=== PATIENT | female | born 1970 | race Caucasian/White ===

== ENCOUNTER 2019-07-19 12:53 | Emergency (ER) | payer BC ==
[2019-07-19] MEDS ORDERED: CEFTRIAXONE/SWI 1gm 1 GM/10 ML SYR ONE (14:28)
[2019-07-19] MEDS ORDERED: NA CHLORIDE 0.9% 1,000 ML ONE (14:28)
[2019-07-19] MEDS ORDERED: KETOROLAC 30 MG/ML INJ ONE (14:28)
[2019-07-19 14:46] LABS: Absolute Lymphocytes (CBC) 1.8 K/uL (0.7-4.9); Basophils % 0.6 % (0-1.3); Hematocrit 38.9 % (36.0-45.0); Lymphocytes % 26.8 % (15.3-44.8); MPV 8.4 fL (7.6-11.3); RBC Red Blood Cell Count 4.29 M/uL (3.86-4.86)
--- NOTE | 2019-07-19 15:12 | RAD REPORT ---
EXAM DESCRIPTION: CT - Stone Protocol - 07/19/2019 2:48 pm CLINICAL HISTORY: Flank pain. ABD PAIN COMPARISON: <Comparisons> TECHNIQUE: Axial images were obtained without oral or IV contrast. Lack of contrast limits solid org an and vascular assessment. The [id number] spans the entirety of the system partially obscuring uppermost abdomen and lung bases. Coronal reformatted images were obtained and reviewed. All CT scans are performed using dose optimization technique as appropriate and may include automated exposure control or mA/KV adjustment according to patient size. FINDINGS: The lower lung ang are clear. Fatty liver. Normal size spleen. The pancreas and adrenal glands are normal. No pathologic lymphadeno larry in the abdomen or pelvis. No urinary tract stones or obstructive uropathy. No bowel obstruction, free air, free fluid or abscess. Normal appendix noted. No significant bony abnormality. IMPRESSION: No urinary tract stones or obstructive uropathy.
[2019-07-19 15:24] LABS: Albumin 3.6 g/dL (3.4-5.0); Bilirubin Direct 0.2 mg/dL (0-0.2); Bilirubin Total 0.7 mg/dL (0.2-1.0); Potassium 3.9 mmol/L (3.5-5.1); Protein, Total 7.5 g/dL (6.4-8.2)
[2019-07-19 15:53] LABS: Urine Blood 1+ (NEG); Urine Glucose NEGATIVE (NEG); Urine Protein NEGATIVE (NEG)
--- NOTE | 2019-07-19 16:07 | EDPHYS ---
Physician Documentation [facility] Name: Jia Hall Age: 49 yrs Sex: Female : 1970 Arrival Date: 07/19/2019 Time: 12:55 Bed 23 Private MD: Kassandra Francisco K ED Physician Fred Roe HPI: 07/19 15:59 This 49 yrs old Female presents to ER via Ambulatory with complaints of Flank soledad Pain, Urinary Problem. 15:59 The patient complains of pain in the right mid back. The pain does not radiate. Onset: soledad The symptoms/episode began/occurred 3 day(s) ago. Modifying factors: The symptoms are alleviated by remaining still, the symptoms are aggravated by movement, palpation/percussion. Associated signs and symptoms: The patient has no apparent associated signs or symptoms. Severity of pain: At its worst the pain was moderate in the emergency department the pain has improved. The patient has not experienced similar symptoms in the past. 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 - Social history:: Smoking status: Patient/guardian denies using tobacco. - Ebola Screening: : Patient denies exposure to infectious person Patient denies travel to an Ebola-affected area in the 21 days before illness onset. ROS: 16:00 Constitutional: Negative for fever, chills, and weight loss, Eyes: Negative for injury, soledad pain, redness, and discharge, ENT: Negative for injury, pain, and discharge, Neck: Negative for injury, pain, and swelling, Cardiovascular: Negative for chest pain, palpitations, and edema, Respiratory: Negative for shortness of breath, cough, wheezing, and pleuritic chest pain, Abdomen/GI: Negative for abdominal pain, nausea, vomiting, diarrhea, and constipation, : Negative for injury, bleeding, discharge, and swelling, MS/Extremity: Negative for injury and deformity, Skin: Negative for injury, rash, and discoloration, Neuro: Negative for headache, weakness, numbness, tingling, and seizure, Psych: Negative for depression, anxiety, suicide ideation, homicidal ideation, and hallucinations, Allergy/Immunology: Negative for hives, rash, and allergies, Endocrine: Negative for neck swelling, polydipsia, polyuria, polyphagia, and marked weight changes, Hematologic/Lymphatic: Negative for swollen nodes, abnormal bleeding, and unusual bruising. 16:00 Back: Positive for injury or acute deformity, decreased range of motion, pain at rest, pain with movement, flank pain, on the right, radiated pain, of the right mid back. Exam: 16:00 Constitutional: This is a well developed, well nourished patient who is awake, alert, soledad and in no acute distress. Head/Face: Normocephalic, atraumatic. Eyes: Pupils equal round and reactive to light, extra-ocular motions intact. Lids and lashes normal. Conjunctiva and sclera are non-icteric and not injected. Cornea within normal limits. Periorbital areas with no swelling, redness, or edema. ENT: Nares patent. No nasal discharge, no septal abnormalities noted. Tympanic membranes are normal and external auditory canals are clear. Oropharynx with no redness, swelling, or masses, exudates, or evidence of obstruction, uvula midline. Mucous membranes moist. Neck: Trachea midline, no thyromegaly or masses palpated, and no cervical lymphadenopathy. Supple, full range of motion without nuchal rigidity, or vertebral point tenderness. No Meningismus. Chest/axilla: Normal chest wall appearance and motion. Nontender with no deformity. No lesions are appreciated. Cardiovascular: Regular rate and rhythm with a normal S1 and S2. No gallops, murmurs, or rubs. Normal PMI, no JVD. No pulse deficits. Respiratory: Lungs have equal breath sounds bilaterally, clear to auscultation and percussion. No rales, rhonchi or wheezes noted. No increased work of breathing, no retractions or nasal flaring. Abdomen/GI: Soft, non-tender, with normal bowel sounds. No distension or tympany. No guarding or rebound. No evidence of tenderness throughout. Female : Normal external genitalia. Skin: Warm, dry with normal turgor. Normal color with no rashes, no lesions, and no evidence of cellulitis. MS/ Extremity: Pulses equal, no cyanosis. Neurovascular intact. Full, normal range of motion. Neuro: Awake and alert, GCS 15, oriented to person, place, time, and situation. Cranial nerves II-XII grossly intact. Motor strength 5/5 in all extremities. Sensory grossly intact. Cerebellar exam normal. Normal gait. Psych: Awake, alert, with orientation to person, place and time. Behavior, mood, and affect are within normal limits. 16:00 Back: pain, that is moderate, ROM is painful, normal spinal alignment noted, CVA tenderness, is absent, muscle spasm, is appreciated in the right mid back. 16:00 Musculoskeletal/extremity: DVT Exam: No signs of deep vein thrombosis. no pain, no swelling, no tenderness, negative Homans' sign noted on exam, no appreciated bluish discoloration, no erythema, no increased warmth. Vital Signs: 13:18 BP 148 / 88; Pulse 75; Resp 16; Temp 98.3(TE); Pulse Ox 100% on R/A; Weight 104.33 kg; la1 Height 5 ft. 5 in. (165.10 cm); Pain 6/10; 14:12 BP 129 / 95 LA (auto/lg); Pulse 69; Resp 16; Pulse Ox 100% on R/A; Pain 6/10; jp3 13:18 Body Mass Index 38.27 (104.33 kg, 165.10 cm) la1 MDM: 14:05 Patient medically screened. [facility] 16:04 Data reviewed: vital signs, nurses notes, lab test result(s), radiologic studies, CT soledad scan. 07/19 14:09 Order name: Basic Metabolic Panel; Complete Time: 15:51 [facility] 07/19 14:09 Order name: CBC with Diff; Complete Time: 15:51 [facility] 07/19 14:09 Order name: Creatinine for Radiology; Complete Time: 15:51 [facility] 07/19 14:09 Order name: Hepatic Function; Complete Time: 15:51 [facility] 07/19 14:09 Order name: Lipase; Complete Time: 15:51 [facility] 07/19 14:09 Order name: Urine Culture [facility] 07/19 14:09 Order name: IV Saline Lock; Complete Time: 14:35 [facility] 07/19 14:09 Order name: Labs collected and sent; Complete Time: 14:35 [facility] 07/19 14:09 Order name: CT Stone Protocol; Complete Time: 15:51 [facility] 07/19 15:01 Order name: Urine Dipstick--Ancillary (enter results) 07/19 15:01 Order name: Urine --Ancillary (enter results) 07/19 14:09 Order name: Urine Dipstick-Ancillary (obtain specimen); Complete Time: 14:35 [facility] Administered Medications: 14:40 Drug: NS 0.9% 1000 ml Route: IV; Rate: 1 bolus; Site: right antecubital; aj 16:27 Follow up: IV Status: Completed infusion; IV Intake: 1000ml [facility] 14:40 Drug: TORadol 30 mg Route: IVP; Site: right antecubital; aj1 16:27 Follow up: Response: No adverse reaction [facility] 14:40 Drug: Rocephin 1 grams Route: IV; Rate: per protocol; Site: right antecubital; aj 14:43 Follow up: IV Status: Completed infusion; IV Intake: 10ml [facility] Disposition: 07/19/19 16:06 Discharged to Home. Impression: Strain of muscle and tendon of back wall of thorax, Low back pain. - Condition is Stable. - Discharge Instructions: Back Pain, Adult, Chronic Back Pain, Musculoskeletal Pain, Back Injury Prevention, [id number], Back Pain, Adult, [id number]. - Prescriptions for Ibuprofen 600 mg Oral Tablet - take 1 tablet by ORAL route every 8 hours As needed take with food; 21 tablet. Tylenol- Codeine #3 300-30 mg Oral Tablet - take 2 tablet by ORAL route every 6 hours As needed; 30 tablet. Medrol (Fadi) 4 mg Oral Tablets, Dose Pack - take 1 tablet by ORAL route as directed - follow package instructions; 1 packet. Cyclobenzaprine 5 mg Oral Tablet - take 1 tablet by ORAL route 3 times per day As needed; 15 tablet. - Medication Reconciliation Form, Thank You Letter, Antibiotic Education, Prescription Opioid Use form. - Follow up: Kassandra Francisco MD; When: 2 - 3 days; Reason: Recheck today's complaints, Continuance of care, Re-evaluation by your physician. - Problem is new. - Symptoms have improved. Signatures: Dispatcher [employer] Deidre Hooker RN RN aj1 Fred Roe MD MD cha Attema, Lee RN RN la1 Corrections: (The following items were deleted from the chart) 16:28 16:06 07/19/2019 16:06 Discharged to Home. Impression: Strain of muscle and tendon of aj1 back wall of thorax; Low back pain. Condition is Stable. Forms are Medication Reconciliation Form, Thank You Letter, Antibiotic Education, Prescription Opioid Use. Follow up: Kassandra Francisco; When: 2 - 3 days; Reason: Recheck today's complaints, Continuance of care, Re-evaluation by your physician. Problem is new. Symptoms have improved. soledad
--- NOTE | 2019-07-19 16:07 | ER ---
Nurse's Notes [facility] Name: Jia Hall Age: 49 yrs Sex: Female : 1970 Arrival Date: 07/19/2019 Time: 12:55 Bed 23 Private MD: Kassandra Francisco K Diagnosis: Strain of muscle and tendon of back wall of thorax;Low back pain Presentation: 07/19 13:14 Presenting complaint: Patient states: R mid-upper back pain that began 3 days ago. Pt la1 reports that her lower back had been bothering her earlier in the week and that she just over compensated for that. Pain is better today then it was yesterday, but is worse when deep breathing and very tender upon palpation. Pt sent by Kassandra Francisco for further evaluation because her UA showed that she had blood in her urine. Transition of care: patient was not received from another setting of care. Onset of symptoms was July 16, 2019. Risk Assessment: Do you want to hurt yourself or someone else? Patient reports no desire to harm self or others. Initial Sepsis Screen: Does the patient meet any 2 criteria? No. Patient's initial sepsis screen is negative. Does the patient have a suspected source of infection? No. Patient's initial sepsis screen is negative. Care prior to arrival: UA at PCP's office. 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 - Social history:: Smoking status: Patient/guardian denies using tobacco. - Ebola Screening: : Patient denies exposure to infectious person Patient denies travel to an Ebola-affected area in the 21 days before illness onset. Screenin:30 Abuse screen: Denies threats or abuse. Denies injuries from another. Nutritional aj1 screening: No deficits noted. Tuberculosis screening: No symptoms or risk factors identified. 16:26 Fall Risk None identified. aj1 Assessment: 14:30 General: Appears in no apparent distress. comfortable, Behavior is calm, cooperative, aj1 appropriate for age. Pain: Complains of pain in back Pain does not radiate. Neuro: Level of Consciousness is awake, alert, obeys commands. Cardiovascular: Patient's skin is warm and dry. Respiratory: Airway is patent Respiratory effort is even, unlabored, Respiratory pattern is regular, symmetrical. GI: No signs and/or symptoms were reported involving the gastrointestinal system. : Reports blood in urine. EENT: No signs and/or symptoms were reported regarding the EENT system. Derm: No signs and/or symptoms reported regarding the dermatologic system. Skin is pink, warm \T\ dry. normal. Musculoskeletal: No signs and/or symptoms reported regarding the musculoskeletal system. Circulation, motion, and sensation intact. 15:35 Reassessment: Patient appears in no apparent distress at this time. No changes from aj1 previously documented assessment. Patient and/or family updated on plan of care and expected duration. Pain level reassessed. Patient is alert, oriented x 3, equal unlabored respirations, skin warm/dry/pink. 16:26 Reassessment: Patient appears in no apparent distress at this time. No changes from aj1 previously documented assessment. Patient and/or family updated on plan of care and expected duration. Pain level reassessed. Patient is alert, oriented x 3, equal unlabored respirations, skin warm/dry/pink. Vital Signs: 13:18 BP 148 / 88; Pulse 75; Resp 16; Temp 98.3(TE); Pulse Ox 100% on R/A; Weight 104.33 kg; la1 Height 5 ft. 5 in. (165.10 cm); Pain 6/10; 14:12 BP 129 / 95 LA (auto/lg); Pulse 69; Resp 16; Pulse Ox 100% on R/A; Pain 6/10; jp3 13:18 Body Mass Index 38.27 (104.33 kg, 165.10 cm) la1 ED Course: 12:55 Patient arrived in ED. as 12:55 Kassandra Francisco MD is Private Physician. as 13:17 Triage completed. la1 13:18 Arm band placed on right wrist. la1 14:00 Urine collected: clean catch specimen, clear, patricia colored. jp3 14:04 Fred Roe MD is Attending Physician. soledad 14:13 Bed in low position. Call light in reach. Side rails up X 1. Warm blanket given. Verbal jp3 reassurance given. Pulse ox on. NIBP on. 14:13 Patient maintains SpO2 saturation greater than 95% on room air. jp3 14:22 Deidre Brito, RN is Primary Nurse. aj1 14:30 No provider procedures requiring assistance completed. aj1 14:34 Initial lab(s) drawn, by me, sent to lab. Inserted saline lock: 22 gauge in right jp3 antecubital area, using aseptic technique. Blood collected. 14:36 Basic Metabolic Panel Sent. jp3 14:36 CBC with Diff Sent. jp3 14:36 Creatinine for Radiology Sent. jp3 14:36 Hepatic Function Sent. jp3 14:36 Lipase Sent. jp3 14:50 CT Stone Protocol In Process Unspecified. EDPR 16:05 Kassandra Francisco MD is Referral Physician. soledad 16:26 IV discontinued, intact, bleeding controlled, No redness/swelling at site. Pressure aj1 dressing applied. Administered Medications: 14:40 Drug: NS 0.9% 1000 ml Route: IV; Rate: 1 bolus; Site: right antecubital; aj1 16:27 Follow up: IV Status: Completed infusion; IV Intake: 1000ml aj1 14:40 Drug: TORadol 30 mg Route: IVP; Site: right antecubital; aj1 16:27 Follow up: Response: No adverse reaction aj1 14:40 Drug: Rocephin 1 grams Route: IV; Rate: per protocol; Site: right antecubital; aj1 14:43 Follow up: IV Status: Completed infusion; IV Intake: 10ml aj1 Intake: 14:43 IV: 10ml; Total: 10ml. aj1 16:27 IV: 1000ml; Total: 1010ml. aj1 Outcome: 16:06 Discharge ordered by . soledad 16:26 Discharged to home ambulatory. aj1 16:26 Condition: good 16:26 Discharge instructions given to patient, Instructed on discharge instructions, follow up and referral plans. no drinking with medication, no driving heavy equipment, medication usage, Demonstrated understanding of instructions, follow-up care, medications, Prescriptions given X 4. 16:28 Patient left the ED. aj1 Signatures: Dispatcher [facility] Deidre Brito RN RN aj1 Fred Roe MD MD cha Martinez, Amelia as Attema, Lee, RN RN la1 Tejas Merida jp3
[2019-07-19 18:44] VITALS: TEMP 98.3; O2SAT 100
[2019-07-19 18:46] VITALS: BP 129/95
== END 2019-07-19 16:28 | disposition home or self-care (01) ==
LOC: ER 12:53
DX: S29.012A Strain of muscle and tendon of back wall of thorax, initial encounter (principal); I10 Essential (primary) hypertension
CPT/HCPCS: 96361; 87088; 85025; 87086; 80048; 36415; 81025; 80076; 81003; 83690; 76377; 74176; 96375; 96374; 99284; J0696; J7030